=== PATIENT | male | born 1970 | race Caucasian/White ===

== ENCOUNTER 2023-11-08 19:45 | Emergency (ER) | payer OTHER ==
[~2023-11-08] VITALS: Ht 30.5 cm; Wt 0.5 kg
[2023-11-08] MEDS: SODIUM CHLORIDE 0.9% 1,000 ML IV ONE (20:10)
[2023-11-08] MEDS ORDERED: CEFAZOLIN SODIUM 2000MG/VIAL IJ ONE (20:15)
[2023-11-08] MEDS: TETANUS, DIPHTHERIA, PERTUSSIS VAC/PF 0.5ML (>10YR OLD) IM ONE (20:24)
[2023-11-08] MEDS: FENTANYL CITRATE/PF 50MCG/ML 2ML VIAL IV ONE ×2 (20:25→21:39)
[2023-11-08 20:32] LABS: PARTIAL THROMBOPLASTIN TIME 26.9 sec (23.4-31.0); PROTHROMBIN TIME 11.2 sec (9.6-11.0)
[2023-11-08 20:33] LABS: CARBON DIOXIDE 21 mEq/L (21-32); CHLORIDE 108 mEq/L (98-107); POTASSIUM 3.3 mEq/L (3.5-5.1); SODIUM 136 mEq/L (136-145)
[2023-11-08 20:34] LABS: CALCIUM 8.9 mg/dL (8.7-10.4)
[2023-11-08] MEDS: CEFAZOLIN 2GM/100ML 100 ML IV NR (20:36)
[2023-11-08 20:38] LABS: CREATININE 0.9 mg/dL (0.6-1.3); GLUCOSE 180 mg/dL (70-105)
[2023-11-08 20:39] LABS: UREA NITROGEN BLOOD 19 mg/dL (9-23)
[2023-11-08 20:40] LABS: ALANINE AMINOTRANSFERASE 25 IU/L (10-49); ALBUMIN 3.8 g/dL (3.2-4.8); ASPARTATE AMINOTRANSFERASE 29 IU/L (<34)
[2023-11-08 20:41] LABS: BILIRUBIN TOTAL 0.5 mg/dL (0.1-1.0); PROTEIN TOTAL 6.2 g/dL (6.0-8.3)
[2023-11-08] MEDS: CEFAZOLIN 1000MG PREMIX 50 ML IV ONE ×2 (21:20)
[2023-11-08 21:32] VITALS: TEMP 97.7
[2023-11-08 21:39] VITALS: BP 150/95; PULSE 64; RESP 12
== END 2023-11-08 22:07 | disposition short-term general hospital (02) ==
LOC: ER 19:45 → CANBEDREQ 21:32 → ER 22:07
DX: S51.812A Laceration without foreign body of left forearm, initial encounter (principal); G89.11 Acute pain due to trauma; X58.XXXA Exposure to other specified factors, initial encounter; Y93.89 Activity, other specified; Y92.89 Other specified places as the place of occurrence of the external cause; Y99.8 Other external cause status
CPT/HCPCS: 80053; 83690; 85610; 85730; 86850; 86900; 86901; 36415; 73090; 90715; 90471; 96365; 96375; 96376; 99291; J3010; J0690; J7030; Z7610